=== PATIENT | male | born 1930 | race Caucasian/White ===

== ENCOUNTER 2016-09-05 11:30 | Inpatient (IN) | payer OTHER, MEDICARE ==
[~2016-09-05] VITALS: Ht 167.6 cm; Wt 79.0 kg
[~2016-09-05 11:30] MED LIST: ACETAMINOPHEN325 M1 PO; ACTONEL5 MG PO; ACTONEL75 MG; AMOX TR-K CLV1 EAC4 PO; ASCORBIC ACID500 M3 PO; ASPIR 8181 M1 PO; ASPIRIN81 M1 PO; ATIVAN0.25 MG; ATIVAN0.5 MG PO; Ascorbic Acid,Ester- PO; Ativan PO; BISAC-EVAC10 MG PR; BISACODYL5 MG PO; CALAN SR,COVER180 MG PO; CEFUROXIME250 MG PO; CILOSTAZOL100 MG PO; COLACE100 MG PO; COUMADIN,JANTOVE1 MG PO; COUMADIN,JANTOVE6 MG PO; COUMADIN1 MG PO; COUMADIN3 MG PO; CRANBERRY500 M2 PO; CRANBERRY500 MG PO; CYCLOBENZAPRINE5 MG; Calan SR,Covera HS,I PO; Colace PO; Coumadin,Jantoven PO; DIGOXIN125 MCG PO; DILAUDID1 MG/ML IV; Dulcolax PO; EFFER-K 10 MEQ10 MEQ PO; FERROUS SULFAT325 MG PO; FISH OIL 1,001000 MG PO; FISH OIL CONC1 EACH PO; FOLIC ACID0.8 MG PO; FURO20I IV; FUROSEMIDE20 MG PO; GINGER250 MG PO; IMDUR30 MG PO; IRON160 M1 PO; IRON18 MG PO; ISOSORBIDE DINI30 MG; KONSYL PSYLLIU3.4 GM PO; LANOXIN,DIGI0.125 MG PO; LASIX40 MG PO; LEXAPRO10 MG PO; LISINOPRIL2.5 MG PO; LO-DOSE ASPIRIN81 M1 PO; LOPRESSOR12.5 MG PO; LOPRESSOR25 MG PO; LORAZEPAM0.5 MG PO; LOVASTATIN10 MG PO; LOVASTATIN20 MG PO; Lanoxin,Digitek PO; Lasix PO; Lopressor PO; MAGNESIUM GLUC200 MG PO; MAGNESIUM100 MG PO; MAGOX 400400 MG PO; METAMUCIL1 EACH; METAMUCIL1 EACH PO; MEVACOR10 M1 PO; MILK OF MAGNESI10 ML PO; MULTIVITAMIN1 EAC1 PO; Mag-Ox PO; Metamucil Packet PO; Micro-K,K-Tab,K-Dur, PO; ONDANSETRON ODT4 MG PO; ONDANSETRON4 MG/2 ML IV; OXYCODONE HCL5 MG PO; OYST-CAL D, OS500 M1 PO; Omega III EPA + DHA PO; PANTOPRAZOLE SO40 MG PO; PLAVIX75 MG PO; PLETAL100 MG PO; POTASSIUM CHLO20 ME1 PO; POTASSIUM GLUCO90 MG PO; PRAVACHOL40 MG PO; Plavix PO; Pletal PO; Protonix PO; SALINE FLUSH 5 M5 ML IV; SENNA8.6 MG PO; SPIRONOLACTONE25 MG PO; THERAGRAN1 TABLET PO; TOPROL XL100 MG PO; TOPROL XL50 MG PO; TRAMADOL HCL50 MG; TYLENOL EXTRA500 MG PO; TYLENOL REGULA325 MG PO; Tylenol Regular Stre PO; VERAPAMIL ER180 MG PO; VERAPAMIL HCL180 M2 PO; VISION PLUS LU1 EACH PO; VISION VITAMIN1 EACH PO; VITAMIN B12 PO; VITAMIN B12-FO1 EACH PO; VITAMIN C500 M1 PO; VITAMIN C500 M5 PO; VITAMIN D1000 UNIT PO; VITAMIN D10000 UNIT PO; VITAMIN D31000 UNIT PO; VITAMIN D35000 UNIT PO; VITAMIN E400 UNI3 PO; VITAMIN E400 UNIT PO; VITAMIN-E400 INTUNI PO; Vitamin D PO; Vitamin-E PO; WARFARIN SODIUM5 MG PO; ZITHROMAX Z-PA250 MG PO; ZOLOFT50 M1 PO; ZOLOFT50 MG PO; Zocor PO; Zoloft PO; [UNRECOGNIZED DRUG - OTHER] PO; [UNRECOGNIZED DRUG - REMARK] PO; predniSONE PO
[2016-09-05 12:12] VITALS: BP 112/81
[2016-09-05 12:40] LABS: HEMATOCRIT 37.6 % (38.0-50.0); MCH 31.4 PG (29.0-34.0); MCHC 32.4 G/DL (30.0-36.0); MCV 96.7 FL (86-99); MEAN PLAT.VOLUME 10.4 uM^3 (9.0-12.4); PLATELET COUNT 118 K/uL (156-360); RBC DIS.WIDTH-CV 18.5 % (11.8-14.6); RBC DIS.WIDTH-SD 61.8 % (39-53); RED BLOOD COUNT 3.89 M/uL (4.00-5.50); WHITE BLOOD COUNT 5.2 K/uL (4.1-10.2)
[2016-09-05 12:41] LABS: CARBON DIOXIDE (BICARBONATE) 36.3 MEQ/L (20-31)
[2016-09-05 12:50] LABS: EOSINOPHIL (%) 4.2 % (0-5); EOSINOPHIL COUNT 0.2 K/uL (0-0.3); LYMPHOCYTE COUNT 0.9 K/uL (1.0-2.8); MONOCYTE (%) 9.2 % (3-12); MONOCYTE COUNT 0.5 K/uL (0-0.8); NEUTROPHIL (%) 69.5 % (45-76); NEUTROPHIL COUNT 3.6 K/uL (1.8-6.4)
[2016-09-05 12:54] LABS: PROTHROMBIN TIME 20.4 (9.2-11.2)
[2016-09-05 12:56] LABS: CHLORIDE 96 mEq/L (99-109); POTASSIUM 3.7 mEq/L (3.7-5.4); SODIUM 137 mEq/L (136-147)
[2016-09-05 12:57] LABS: MAGNESIUM 2.5 mg/dL (1.3-2.7)
[2016-09-05 12:58] LABS: GLUCOSE 115 mg/dL (70-99)
[2016-09-05 13:00] LABS: ANION GAP 10 MEQ/L (2-14); TOTAL BILIRUBIN 1.4 mg/dL (0.0-1.0)
[2016-09-05 13:02] LABS: ALKALINE PHOSPHATASE 134 IU/L (3-129); GFR ESTIMATE (CALCULATED) 34 mL/min/
[2016-09-05 13:03] VITALS: BP 117/72
[2016-09-05 13:03] LABS: UREA NITROGEN (BUN) 75 mg/dL (9-23)
[2016-09-05 13:13] LABS: TROP-I INTERPRETATION NEGATIVE; TROPONIN-I 0.04 ng/mL (0.0-0.30)
[2016-09-05] MEDS ORDERED: TYLENOL REGULA325 MG PO (14:56)
[2016-09-05] MEDS ORDERED: IRON325 M1 PO (15:22)
[2016-09-05] MEDS ORDERED: LASIX40 MG PO ×2 (15:23→15:24)
[2016-09-05] MEDS ORDERED: SLOW IRON PO (15:23)
[2016-09-05] MEDS ORDERED: LORAZEPAM0.5 MG PO (15:25)
[2016-09-05] MEDS ORDERED: LOPRESSOR25 MG PO (15:26)
[2016-09-05] MEDS ORDERED: WARFARIN SODIUM5 MG PO (15:28)
[2016-09-05] MEDS ORDERED: WARFARIN SODIUM2 MG PO (15:29)
[2016-09-05] MEDS ORDERED: LOVASTATIN20 MG PO (15:30)
[2016-09-05] MEDS ORDERED: PROBIOTIC1 EAC1 PO (15:34)
[2016-09-05] MEDS ORDERED: MULTI VITAMIN1 EACH PO (15:34)
[2016-09-05] MEDS ORDERED: DORZOLAMIDE-TIM10 ML LEFT EYE (15:34)
[2016-09-05] MEDS ORDERED: METOLAZONE2.5 MG PO (15:36)
[2016-09-05] MEDS ORDERED: ALBUTEROL2.5 MG/3 M IH (15:36)
[2016-09-05] MEDS ORDERED: potassium gluconate PO (15:38)
[2016-09-05] MEDS ORDERED: XALATAN2.5 ML LEFT EYE (15:39)
[2016-09-05] MEDS ORDERED: POTASSIUM GLUCONATE PO (15:39)
[2016-09-05] MEDS ORDERED: MELATONIN5 M1 PO (15:41)
[2016-09-05 19:57] VITALS: BP 115/78
[2016-09-05 20:00] VITALS: BP 115/78
[2016-09-06] VITALS (9 sets, daily range): BP systolic 112–140; BP diastolic 70–95
[2016-09-06 00:44] LABS: ADD MIUA? NO; BILIRUBIN NEGATIVE; BLOOD NEGATIVE; COLOR YELLOW ((YELLOW)); GLUCOSE (STRIP) NEGATIVE; KETONES NEGATIVE; LEUKOCYTES NEGATIVE; NITRITE NEGATIVE; PH, URINE 6.5 (5-8); PROTEIN (STRIP) TRACE; SPECIFIC GRAVITY 1.013 (1.000-1.030); UCUL ADDED? NO
[2016-09-06 06:54] LABS: HEMATOCRIT 36.4 % (38.0-50.0); MCH 31.7 PG (29.0-34.0); MCV 96.3 FL (86-99); MEAN PLAT.VOLUME 11.4 uM^3 (9.0-12.4); PLATELET COUNT 115 K/uL (156-360); RBC DIS.WIDTH-CV 18.8 % (11.8-14.6); RBC DIS.WIDTH-SD 64.4 % (39-53); RED BLOOD COUNT 3.78 M/uL (4.00-5.50); WHITE BLOOD COUNT 5.7 K/uL (4.1-10.2)
[2016-09-06 07:02] LABS: PROTHROMBIN TIME 20.7 (9.2-11.2)
[2016-09-06 07:22] LABS: ANION GAP 11 MEQ/L (2-14); CHLORIDE 99 MEQ/L (99-109); GFR ESTIMATE (CALCULATED) 41 mL/min/; GLUCOSE 102 mg/dL (70-99); POTASSIUM 3.9 MEQ/L (3.7-5.4); SAMPLE HEMOLYSIS CHECK 0; SAMPLE ICTERIC CHECK 0; SAMPLE LIPEMIA CHECK 0; SODIUM 138 MEQ/L (136-147); UREA NITROGEN (BUN) 67 mg/dL (9-23)
[2016-09-06 08:50] LABS: INTERNAL CONTROL VALID? YES
[2016-09-07 03:02] VITALS: BP 126/83
[2016-09-07 06:51] LABS: HEMATOCRIT 37.3 % (38.0-50.0); MCH 31.4 PG (29.0-34.0); MCHC 32.4 G/DL (30.0-36.0); MCV 96.9 FL (86-99); MEAN PLAT.VOLUME 11.4 uM^3 (9.0-12.4); PLATELET COUNT 130 K/uL (156-360); RBC DIS.WIDTH-CV 18.9 % (11.8-14.6); RBC DIS.WIDTH-SD 66.2 % (39-53); RED BLOOD COUNT 3.85 M/uL (4.00-5.50); WHITE BLOOD COUNT 6.9 K/uL (4.1-10.2)
[2016-09-07 06:58] LABS: INTER. NORMALIZED RATIO 2.1; PROTHROMBIN TIME 22.3 (9.2-11.2)
[2016-09-07 07:14] LABS: EOSINOPHIL (%) 3.9 % (0-5); EOSINOPHIL COUNT 0.3 K/uL (0-0.3); IMMATURE GRANULOCYTE (%) 0.1 % (0.0-0.7); LYMPHOCYTE COUNT 1.3 K/uL (1.0-2.8); MONOCYTE (%) 9.9 % (3-12); MONOCYTE COUNT 0.7 K/uL (0-0.8); NEUTROPHIL (%) 67.7 % (45-76); NEUTROPHIL COUNT 4.7 K/uL (1.8-6.4)
[2016-09-07 07:15] LABS: ANION GAP 12 MEQ/L (2-14); CHLORIDE 98 MEQ/L (99-109); GFR ESTIMATE (CALCULATED) 36 mL/min/; GLUCOSE 108 mg/dL (70-99); SAMPLE HEMOLYSIS CHECK 0; SAMPLE ICTERIC CHECK 0; SAMPLE LIPEMIA CHECK 0; SODIUM 138 MEQ/L (136-147); UREA NITROGEN (BUN) 72 mg/dL (9-23)
[2016-09-07 07:41] LABS: BILIRUBIN NEGATIVE; BLOOD NEGATIVE; COLOR YELLOW ((YELLOW)); GLUCOSE (STRIP) NEGATIVE; KETONES NEGATIVE; LEUKOCYTES NEGATIVE; NITRITE NEGATIVE; PH, URINE 5.5 (5-8); PROTEIN (STRIP) TRACE; SPECIFIC GRAVITY 1.019 (1.000-1.030); UROBILINOGEN 0.2 MG/DL (0.2-1.0)
[2016-09-07 08:04] LABS: ADD MIUA? NO
[2016-09-07 11:47] VITALS: BP 110/69
[2016-09-07 16:54] VITALS: BP 112/76
[2016-09-07 19:48] VITALS: BP 150/91
[2016-09-07 23:29] VITALS: BP 121/82
[2016-09-08 03:45] VITALS: BP 132/90
[2016-09-08 06:48] LABS: HEMATOCRIT 36.8 % (38.0-50.0); MCH 31.9 PG (29.0-34.0); MCHC 33.2 G/DL (30.0-36.0); MCV 96.1 FL (86-99); PLATELET COUNT 128 K/uL (156-360); RBC DIS.WIDTH-CV 18.8 % (11.8-14.6); RBC DIS.WIDTH-SD 64.7 % (39-53); RED BLOOD COUNT 3.83 M/uL (4.00-5.50); WHITE BLOOD COUNT 6.6 K/uL (4.1-10.2)
[2016-09-08 06:59] LABS: INTER. NORMALIZED RATIO 2.2; PROTHROMBIN TIME 22.5 (9.2-11.2)
[2016-09-08 07:00] LABS: EOSINOPHIL (%) 0.2 % (0-5); IMMATURE GRANULOCYTE (%) 0.3 % (0.0-0.7); MONOCYTE (%) 9.3 % (3-12); MONOCYTE COUNT 0.6 K/uL (0-0.8); NEUTROPHIL (%) 75.3 % (45-76); NEUTROPHIL COUNT 4.9 K/uL (1.8-6.4)
[2016-09-08 07:21] LABS: ANION GAP 12 MEQ/L (2-14); CHLORIDE 99 MEQ/L (99-109); GFR ESTIMATE (CALCULATED) 41 mL/min/; GLUCOSE 125 mg/dL (70-99); SAMPLE HEMOLYSIS CHECK 0; SAMPLE ICTERIC CHECK 0; SAMPLE LIPEMIA CHECK 0; SODIUM 138 MEQ/L (136-147); UREA NITROGEN (BUN) 75 mg/dL (9-23)
[2016-09-08 07:35] VITALS: BP 127/92
[2016-09-08 11:33] VITALS: BP 134/72
[2016-09-08 15:50] VITALS: BP 111/80
[2016-09-08 20:07] VITALS: BP 116/81
[2016-09-08 23:24] VITALS: BP 136/99
[2016-09-09 03:24] VITALS: BP 128/89
[2016-09-09 06:59] LABS: HEMATOCRIT 39.8 % (38.0-50.0); MCHC 31.9 G/DL (30.0-36.0); MCV 97.1 FL (86-99); MEAN PLAT.VOLUME 11.2 uM^3 (9.0-12.4); PLATELET COUNT 139 K/uL (156-360); RBC DIS.WIDTH-CV 19.1 % (11.8-14.6); RBC DIS.WIDTH-SD 66.8 % (39-53); WHITE BLOOD COUNT 7.9 K/uL (4.1-10.2)
[2016-09-09 07:04] LABS: EOSINOPHIL (%) 0 % (0-5); IMMATURE GRANULOCYTE (%) 0.1 % (0.0-0.7); LYMPHOCYTE COUNT 0.7 K/uL (1.0-2.8); MONOCYTE (%) 3.9 % (3-12); MONOCYTE COUNT 0.3 K/uL (0-0.8); NEUTROPHIL (%) 87.5 % (45-76); NEUTROPHIL COUNT 6.9 K/uL (1.8-6.4)
[2016-09-09 07:25] LABS: ANION GAP 13 MEQ/L (2-14); CHLORIDE 97 MEQ/L (99-109); GFR ESTIMATE (CALCULATED) 38 mL/min/; GLUCOSE 125 mg/dL (70-99); POTASSIUM 4.5 MEQ/L (3.7-5.4); SAMPLE HEMOLYSIS CHECK 0; SAMPLE ICTERIC CHECK 0; SAMPLE LIPEMIA CHECK 0; SODIUM 136 MEQ/L (136-147); UREA NITROGEN (BUN) 76 mg/dL (9-23)
[2016-09-09 07:43] VITALS: BP 122/82
[2016-09-09 10:10] VITALS: BP 132/90
[2016-09-09 12:25] LABS: INTER. NORMALIZED RATIO 2.8; PROTHROMBIN TIME 29.4 (9.2-11.2)
[2016-09-09 23:17] VITALS: BP 122/95
[2016-09-10 03:15] VITALS: BP 128/87
[2016-09-10 07:22] VITALS: BP 128/89
[2016-09-10 07:23] LABS: INTER. NORMALIZED RATIO 3.7; PROTHROMBIN TIME 38.8 (9.2-11.2)
[2016-09-10 15:24] LABS: ANION GAP 11 MEQ/L (2-14); CHLORIDE 98 MEQ/L (99-109); GFR ESTIMATE (CALCULATED) 38 mL/min/; GLUCOSE 118 mg/dL (70-99); POTASSIUM 4.7 MEQ/L (3.7-5.4); SAMPLE HEMOLYSIS CHECK 0; SAMPLE ICTERIC CHECK 0; SAMPLE LIPEMIA CHECK 0; SODIUM 136 MEQ/L (136-147); UREA NITROGEN (BUN) 82 mg/dL (9-23)
[2016-09-10 15:43] VITALS: BP 130/98
[2016-09-10 19:20] VITALS: BP 128/71
[2016-09-10 23:12] VITALS: BP 126/101
[2016-09-11 02:30] VITALS: BP 123/84
[2016-09-11 07:15] VITALS: BP 118/85
[2016-09-11 09:30] LABS: HEMATOCRIT 40.1 % (38.0-50.0); MCH 31.8 PG (29.0-34.0); MCHC 32.4 G/DL (30.0-36.0); PLATELET COUNT 152 K/uL (156-360); RBC DIS.WIDTH-CV 19.5 % (11.8-14.6); RBC DIS.WIDTH-SD 67.7 % (39-53); RED BLOOD COUNT 4.09 M/uL (4.00-5.50); WHITE BLOOD COUNT 9.1 K/uL (4.1-10.2)
[2016-09-11 09:38] LABS: PROTHROMBIN TIME 42.2 (9.2-11.2)
[2016-09-11 09:53] LABS: ANION GAP 10 MEQ/L (2-14); CHLORIDE 99 MEQ/L (99-109); GFR ESTIMATE (CALCULATED) 34 mL/min/; GLUCOSE 129 mg/dL (70-99); MAGNESIUM 2.6 mg/dl (1.3-2.7); POTASSIUM 5.2 MEQ/L (3.7-5.4); SAMPLE HEMOLYSIS CHECK 0; SAMPLE ICTERIC CHECK 0; SAMPLE LIPEMIA CHECK 0; SODIUM 138 MEQ/L (136-147); UREA NITROGEN (BUN) 92 mg/dL (9-23)
[2016-09-11 11:56] VITALS: BP 115/71
[2016-09-11 16:34] VITALS: BP 118/80
[2016-09-11 19:46] VITALS: BP 135/90
[2016-09-11 23:02] VITALS: BP 122/86
[2016-09-12 03:17] VITALS: BP 103/67
[2016-09-12 07:21] LABS: HEMATOCRIT 39.6 % (38.0-50.0); MCH 32.3 PG (29.0-34.0); MCHC 32.6 G/DL (30.0-36.0); MEAN PLAT.VOLUME 11.4 uM^3 (9.0-12.4); PLATELET COUNT 149 K/uL (156-360); RBC DIS.WIDTH-CV 19.5 % (11.8-14.6); RBC DIS.WIDTH-SD 68.4 % (39-53); WHITE BLOOD COUNT 8.5 K/uL (4.1-10.2)
[2016-09-12 07:31] LABS: INTER. NORMALIZED RATIO 3.8; PROTHROMBIN TIME 40.7 (9.2-11.2)
[2016-09-12 07:45] VITALS: BP 120/87
[2016-09-12 07:57] LABS: ANION GAP 13 MEQ/L (2-14); CHLORIDE 98 MEQ/L (99-109); GFR ESTIMATE (CALCULATED) 30 mL/min/; GLUCOSE 113 mg/dL (70-99); MAGNESIUM 2.8 mg/dl (1.3-2.7); POTASSIUM 5.3 MEQ/L (3.7-5.4); SAMPLE HEMOLYSIS CHECK 1; SAMPLE ICTERIC CHECK 0; SAMPLE LIPEMIA CHECK 0; SODIUM 138 MEQ/L (136-147)
[2016-09-12 07:59] LABS: UREA NITROGEN (BUN) 102 mg/dL (9-23)
[2016-09-12 11:31] VITALS: BP 128/79
[2016-09-12 15:29] VITALS: BP 108/73
[2016-09-12 20:27] VITALS: BP 108/86
[2016-09-13 00:10] VITALS: BP 142/85
[2016-09-13 03:49] VITALS: BP 125/81
[2016-09-13 06:31] LABS: HEMATOCRIT 37.1 % (38.0-50.0); MCH 31.9 PG (29.0-34.0); MCHC 32.3 G/DL (30.0-36.0); MCV 98.7 FL (86-99); MEAN PLAT.VOLUME 11.1 uM^3 (9.0-12.4); PLATELET COUNT 152 K/uL (156-360); RBC DIS.WIDTH-CV 19.6 % (11.8-14.6); RBC DIS.WIDTH-SD 68.5 % (39-53); RED BLOOD COUNT 3.76 M/uL (4.00-5.50); WHITE BLOOD COUNT 8.7 K/uL (4.1-10.2)
[2016-09-13 06:33] LABS: INTER. NORMALIZED RATIO 3.4; PROTHROMBIN TIME 35.7 (9.2-11.2)
[2016-09-13 06:51] LABS: EOSINOPHIL (%) 0 % (0-5); IMMATURE GRANULOCYTE (%) 0.2 % (0.0-0.7); LYMPHOCYTE COUNT 0.8 K/uL (1.0-2.8); MONOCYTE (%) 9.2 % (3-12); MONOCYTE COUNT 0.8 K/uL (0-0.8); NEUTROPHIL (%) 81.5 % (45-76); NEUTROPHIL COUNT 7.1 K/uL (1.8-6.4)
[2016-09-13 06:56] LABS: ANION GAP 13 MEQ/L (2-14); CHLORIDE 99 MEQ/L (99-109); GFR ESTIMATE (CALCULATED) 27 mL/min/; GLUCOSE 120 mg/dL (70-99); MAGNESIUM 2.8 mg/dl (1.3-2.7); SAMPLE HEMOLYSIS CHECK 0; SAMPLE ICTERIC CHECK 0; SAMPLE LIPEMIA CHECK 0; SODIUM 140 MEQ/L (136-147)
[2016-09-13 06:58] LABS: UREA NITROGEN (BUN) 106 mg/dL (9-23)
[2016-09-13 08:00] VITALS: BP 121/84
[2016-09-13 11:15] VITALS: BP 116/78
[2016-09-13 21:55] VITALS: BP 134/89
[2016-09-13 22:34] VITALS: BP 124/74
[2016-09-14 03:40] VITALS: BP 157/78
[2016-09-14 07:45] LABS: HEMATOCRIT 38.8 % (38.0-50.0); MCH 30.9 PG (29.0-34.0); MCHC 31.2 G/DL (30.0-36.0); NRBC (%) 0.7 /100 WBC (0-0); PLATELET COUNT 148 K/uL (156-360); RBC DIS.WIDTH-CV 20.2 % (11.8-14.6); RBC DIS.WIDTH-SD 69.8 % (39-53); RED BLOOD COUNT 3.92 M/uL (4.00-5.50); WHITE BLOOD COUNT 8.2 K/uL (4.1-10.2)
[2016-09-14 07:52] LABS: EOSINOPHIL (%) 0.1 % (0-5); IMMATURE GRANULOCYTE (%) 0.1 % (0.0-0.7); LYMPHOCYTE COUNT 0.7 K/uL (1.0-2.8); MONOCYTE (%) 8.3 % (3-12); MONOCYTE COUNT 0.7 K/uL (0-0.8); NEUTROPHIL (%) 82.5 % (45-76); NEUTROPHIL COUNT 6.8 K/uL (1.8-6.4)
[2016-09-14 07:59] LABS: PROTHROMBIN TIME 32.1 (9.2-11.2)
[2016-09-14 08:10] VITALS: BP 138/84
[2016-09-14 08:31] LABS: ANION GAP 13 MEQ/L (2-14); CHLORIDE 100 MEQ/L (99-109); GFR ESTIMATE (CALCULATED) 29 mL/min/; GLUCOSE 116 mg/dL (70-99); SAMPLE HEMOLYSIS CHECK 0; SAMPLE ICTERIC CHECK 1; SAMPLE LIPEMIA CHECK 0; SODIUM 142 MEQ/L (136-147)
[2016-09-14 08:35] LABS: UREA NITROGEN (BUN) 113 mg/dL (9-23)
[2016-09-14 13:59] VITALS: BP 127/84
[2016-09-14 15:45] VITALS: BP 114/80
[2016-09-15 07:44] LABS: HEMATOCRIT 38.7 % (38.0-50.0); MCH 31.3 PG (29.0-34.0); MCHC 31.3 G/DL (30.0-36.0); MCV 100.3 FL (86-99); MEAN PLAT.VOLUME 10.9 uM^3 (9.0-12.4); NRBC (%) 0.6 /100 WBC (0-0); PLATELET COUNT 136 K/uL (156-360); RBC DIS.WIDTH-CV 20.8 % (11.8-14.6); RBC DIS.WIDTH-SD 72.2 % (39-53); RED BLOOD COUNT 3.86 M/uL (4.00-5.50); WHITE BLOOD COUNT 10.1 K/uL (4.1-10.2)
[2016-09-15 07:51] LABS: EOSINOPHIL (%) 0 % (0-5); IMMATURE GRANULOCYTE (%) 0.3 % (0.0-0.7); LYMPHOCYTE COUNT 0.6 K/uL (1.0-2.8); MONOCYTE (%) 8.3 % (3-12); MONOCYTE COUNT 0.8 K/uL (0-0.8); NEUTROPHIL (%) 85.9 % (45-76); NEUTROPHIL COUNT 8.7 K/uL (1.8-6.4)
[2016-09-15 08:16] LABS: INTER. NORMALIZED RATIO 3.3
[2016-09-15 08:35] LABS: ANION GAP 16 MEQ/L (2-14); CHLORIDE 103 MEQ/L (99-109); GFR ESTIMATE (CALCULATED) 27 mL/min/; GLUCOSE 118 mg/dL (70-99); POTASSIUM 5.3 MEQ/L (3.7-5.4); SAMPLE HEMOLYSIS CHECK 0; SAMPLE ICTERIC CHECK 1; SAMPLE LIPEMIA CHECK 0; SODIUM 144 MEQ/L (136-147)
[2016-09-15 08:36] LABS: UREA NITROGEN (BUN) 117 mg/dL (9-23)
[2016-09-15 10:15] VITALS: BP 115/88
[2016-09-15 17:34] VITALS: BP 134/95
[2016-09-15 23:20] VITALS: BP 134/88
[2016-09-16 08:56] VITALS: BP 129/88
[2016-09-16] MEDS ORDERED: PREDNISONE10 MG PO (09:01)
[2016-09-16] MEDS ORDERED: ATIVAN INTE2 MG/1 ML PO (09:01)
[2016-09-16] MEDS ORDERED: ZIPRASIDONE HCL20 MG PO (09:01)
[2016-09-16] MEDS ORDERED: MORPHINE CON20 MG/M1 PO (09:01)
[2016-09-16] MEDS ORDERED: LEVSIN-SL0.125 MG SL (09:01)
[2016-09-16 10:16] LABS: ANION GAP 11 MEQ/L (2-14); CHLORIDE 105 MEQ/L (99-109); POTASSIUM 4.7 MEQ/L (3.7-5.4); SAMPLE HEMOLYSIS CHECK 0; SAMPLE ICTERIC CHECK 1; SAMPLE LIPEMIA CHECK 0; SODIUM 145 MEQ/L (136-147)
[2016-09-16 10:34] LABS: GFR ESTIMATE (CALCULATED) 27 mL/min/; GLUCOSE 141 mg/dL (70-99)
[2016-09-16 10:35] LABS: UREA NITROGEN (BUN) 119 mg/dL (9-23)
[2016-09-16 11:33] LABS: INTER. NORMALIZED RATIO 2.9; PROTHROMBIN TIME 30.2 (9.2-11.2)
== END 2016-09-16 12:55 | disposition hospice, home (50) | DRG 291 ==
LOC: EME 11:30 → 5EAST 14:08 → EDOF 14:08 → 4EAST 14:08 → EDOF 14:08 → 4EAST 19:30 → 5EAST 09-06 18:25
PROVIDERS: Internal Medicine; Internal Medicine Cardiovascular Disease; Internal Medicine Nephrology; Physician Assistant
DX: I13.0 Hypertensive heart and chronic kidney disease with heart failure and stage 1 through stage 4 chronic kidney disease, or unspecified chronic kidney disease (principal); I50.33 Acute on chronic diastolic (congestive) heart failure; J15.9 Unspecified bacterial pneumonia; N17.0 Acute kidney failure with tubular necrosis; J96.21 Acute and chronic respiratory failure with hypoxia; I25.810 Atherosclerosis of coronary artery bypass graft(s) without angina pectoris; E86.0 Dehydration; R41.0 Disorientation, unspecified; R45.1 Restlessness and agitation; N18.3 Chronic kidney disease, stage 3 (moderate); J84.10 Pulmonary fibrosis, unspecified; I48.2 Chronic atrial fibrillation; I27.2 Other secondary pulmonary hypertension; I25.5 Ischemic cardiomyopathy; R26.2 Difficulty in walking, not elsewhere classified; I73.9 Peripheral vascular disease, unspecified; E78.5 Hyperlipidemia, unspecified; F41.9 Anxiety disorder, unspecified; Z79.01 Long term (current) use of anticoagulants; Z95.3 Presence of xenogenic heart valve; Z95.5 Presence of coronary angioplasty implant and graft; Z99.81 Dependence on supplemental oxygen
CPT/HCPCS: 36415; 71010; 71020; 76770; 80048; 80053; 81003; 82803; 83735; 83880; 84100; 84484; 85025; 85027; 85610; 87040; 87070; 87205; 87449; 93005; 94640; 94640 76; 94760; 94799; 97530 GO; 97530 GP; 99202; 99281; 99285; J0456; J0696; J1630; J1940; J7030; J7050; J7512